=== PATIENT | female | born 2005 ===

== ENCOUNTER 2025-09-06 09:19 | Emergency (ER) | payer OTHER, SELFPAY ==
--- NOTE | ~2025-09-06 | CT_ITS ---
CLINICAL HISTORY: abd pain CT abdomen and pelvis with contrast Comparison: None provided Findings: No consolidation or effusion. The liver, gallbladder, spleen, adrenal glands, pancreas, kidneys, ureters and bladder are unremarkable. Normal appendix. No bowel obstruction. Gas and fluid seen throughout nondistended small and large bowel. No pneumatosis or free air. The uterus appears within normal limits. Abnormal somewhat tubular appearance of the adnexa bilaterally, [id number]. No acute osseous finding. Impression: Hydrosalpinx versus pyosalpinx suggested. Alternatively these may reflect elongated adnexal cysts. Pelvic ultrasound recommended. Otherwise no acute process. This document has been electronically signed by: Andrey Soares MD on 09/06/2025 12:00:32
--- NOTE | ~2025-09-06 | US_ITS ---
CLINICAL HISTORY: abd pain, further evaluation of ovaries US pelvis transabdominal and transvaginal with Doppler Comparison: None provided Findings: Transabdominal scanning performed for overall anatomy. Transvaginal scanning performed for additional detail. Anteverted uterus is 9.3 cm length. Normal myometrium. No endometrial lesion, 8 mm thickness. Right ovary 2.9 x 2.1 x 1.9 cm. Left ovary 6.3 x 4.5 x 5.0 cm. Left ovarian cyst measuring 5.7 x 4.1 x 3.7 cm. Normal color Doppler with arterial/venous spectral tracing of both ovaries. No free fluid. IMPRESSION: 1. No acute process. 2. Left ovarian cyst. Follow-up ultrasound in 6 weeks is recommended to ensure resolution and exclude underlying neoplasm. This document has been electronically signed by: Heriberto Aguirre MD on 09/06/2025 14:07:41
[2025-09-06 09:23] VITALS: BP 125/81; PULSE 80; RESP 15; TEMP 36.6; O2SAT 99; BMI 20.7
--- NOTE | 2025-09-06 09:44 | ED_ITS ---
HPI - General Adult General Chief complaint: Abdominal Pain Stated complaint: abd discomfort Time Seen by Provider: 09/06/25 09:44 Source: patient Mode of arrival: ambulatory Limitations: no limitations History of Present Illness ED Provider: Nichelle Meraz PA-C HPI narrative: Patient is a 20 year old assigned female at with a history of recent BV + chlamydia for which she has been taking her medications presenting to the emergency department today with diffuse abdominal pain, nausea, and vomiting. Patient states that over the last 2 days she has had abdominal pain, nausea, and vomiting. Patient states that she is on her period right now as well. Patient denies any other complaints at this time. Related Data Allergies Allergy/AdvReac Type Severity Reaction Status Date / Time No Known Allergies Allergy Verified 09/06/25 09:23 Review of Systems 2 Constitutional: Constitutional: Reports as per HPI Eyes: Eyes: Reports as per HPI ENT: Reports as per HPI Cardiovascular: Cardiovascular: Reports as per HPI Respiratory: Respiratory: Reports as per HPI Gastrointestinal: Gastrointestinal: Reports as per HPI Genitourinary: Genitourinary: Reports as per HPI Musculoskeletal: Musculoskeletal: Reports as per HPI Integumentary/Breasts: Skin/Breast: Reports as per HPI Neurologic: Reports as per HPI Psychiatric: Psychiatric: Reports as per HPI Endocrine: Endocrine: Reports as per HPI Hematologic/Lymphatic: Hematologic/Lymphatic: Reports as per HPI Allergic/Immunologic: Allergic/Immunologic: Reports as per HPI PMF Past Medical History Attestation statement: The following information was validated with the patient. Source: old records reviewed and nursing notes reviewed Social History Social History Smoked in Last 30 Days: No Use of substances other than those prescribed or required for medical reasons: No Advance Directives: No Advance Directives Information Provided: No Do you have a plan to hurt others: No Plan Physical Exam ED Vital Signs: Vital Signs - 24 hr 09/06/25 09:23 09/06/25 13:48 Temperature 97.8 F 98.8 F Pulse Rate 80 62 Respiratory Rate 15 18 Blood Pressure 125/81 102/59 L Pulse Oximetry 99 100 Oxygen Delivery Method Room Air Room Air BMI result Body Mass Index 20.7 Const General: cooperative, no acute distress, alert and awake Nutritional Appearance: well nourished Orientation/consciousness: patient oriented x3 HENMT Head: Yes normal to inspection and Yes atraumatic Ears: hearing grossly normal bilaterally and external ears normal General nose exam: Normal external nose present, no nasal discharge noted and no epistaxis Face and sinus: Yes normal facial exam, No abrasion and No laceration Mouth: Normal oral and palatal mucosa present, no drooling and no muffled voice Eyes General: appearance normal, both eyes and all related structures Periorbital: periorbital findings normal Eyelids: Yes eyelids normal Conjunctivae: conjunctivae normal Pupils: Equal, round and reactive pupils present EOM: EOMs intact bilaterally Neck Neck: Yes normal visual inspection and Yes full ROM Resp Effort & Inspection: normal respiratory effort and able to speak in complete sentences GI Palpation (GI): Soft to palpation, not firm, Tenderness to palpation present (GI), no guarding and not rigid Neuro General: patient oriented x3, moves all extremities and CN's II-XI intact bilaterally Cranial nerves: Yes Equal, round and reactive pupils present Cognition (Neuro): normal cognition Extrem General: Yes normal to inspection, Yes full ROM and Yes capillary refill normal Psych Appearance: grossly normal Mental Status: mental status grossly normal Affect: normal affect Attitude: cooperative Thought process: Normal thought process present Thought content: Normal thought content present Insight: Good insight present (Psych) Medications Administered Discontinued Medications Generic Name Dose Route Start Last Admin Trade Name Wanda PRN Reason Stop Dose Admin Ceftriaxone Sodium 1 gm 09/06/25 13:17 09/06/25 13:43 Ceftriaxone Sodium 1 Gm Vial IVPUSH 09/06/25 13:18 1 gm ONCE ONE Administration Sodium Chloride 1,000 mls @ 999 mls/hr 09/06/25 09:45 09/06/25 12:01 Ns IV 09/06/25 10:45 Infused .Q1H1M SHEELA Infusion Iohexol 100 ml 09/06/25 11:18 09/06/25 11:18 Iohexol 350 Mg/Ml 100 Ml Infus..Btl IV 09/06/25 11:19 85 ml ONCE ONE Administration Morphine Sulfate 4 mg 09/06/25 09:44 09/06/25 10:44 Morphine Sulfate 4 Mg/Ml Cartridge IVPUSH 09/06/25 09:45 4 mg ONCE ONE Administration Protocol Morphine Sulfate 4 mg 09/06/25 13:52 09/06/25 14:40 Morphine Sulfate 4 Mg/Ml Cartridge IVPUSH 09/06/25 13:53 4 mg ONCE ONE Administration Protocol Ondansetron HCl 4 mg 09/06/25 09:44 09/06/25 10:44 Ondansetron Hcl 4 Mg/2 Ml Vial IVPUSH 09/06/25 09:45 4 mg ONCE ONE Administration Medical Decision Making Medical Decision Making [facility] Narrative: Patient is a 20 year old assigned female at with a history of recent BV + chlamydia for which she has been taking her medications presenting to the emergency department today with diffuse abdominal pain, nausea, and vomiting. Patient's physical exam was as noted in the physical exam portion of this note. Patient's blood work was unremarkable. Patient's urine showed moderate blood which is consistent with the patient currently being on her menstrual cycle. Patient's CT abd/pelvis showed hyddrosalpinx vs. pyosalpix vs. elongated adenexal cysts for which the radgiologist recommended an US. Patient's transvaginal / pelvis US showed a left ovary measuring 6.3 x 4.5 x 5.0 cm with a left ovarian cyst measuring 5.7 x 4.1 x 3.7 cm with normal doppler flow. Patient's clinical presentation and work up are concerning for PID as well as left ovarian torsion + de-torsion given her level of pain, nausea, vomiting, and enlarged ovary + cyst. [facility] does not have OBGYN call coverage today so I called and spoke to Dr. Deshpande, OBGYN, from [facility] who recommended transfer of the patient to their facility for further evaluation. I explained my physical exam findings as well as all test results to the patient. I answered all questions asked by the patient. Patient received IV Morphine, Ceftriaxone, and Flagyl. Patient verbalized agreement and understanding with this treatment plan and transfer to [facility]. Differential Diagnosis Differential Diagnoses: The differential diagnosis associated with the presentation includes Ovarian cyst Abdominal pain Ovarian torsion de-torsion PID Admission/Observation Consideration of admission/observation: Escalation of care including admission/observation considered Patient transferred to [facility] for further OBGYN evaluation. Consult Healthcare Provider Management of the patient was discussed with: [employer] (Spoke to Dr. Deshpande, the OBGYN at [facility], as noted in the MDM Rationale portion of this note. ) Lab Data [facility] Lab Attestation statement: I reviewed the patient's lab results. My interpretation of these results are in the MDM Rationale portion of this note. 09/06/25 10:03 09/06/25 10:03 Labs: Lab Results 09/06/25 09/06/25 Range/Units 10:03 13:42 WBC 6.1 (4.8-10.8) X10*3/uL RBC 5.27 (4.20-5.50) X10*6/uL Hgb 15.0 (12.0-16.0) g/dl Hct 45.0 (37.0-47.0) % MCV 85.4 (80.0-98.0) fL MCH 28.5 (27.0-33.0) pg MCHC 33.3 (31.0-35.0) g/dl RDW 13.3 (11.0-16.0) % Plt Count 250 (160-400) X10*3/uL MPV 9.5 (9.4-12.3) fL Immature Gran % (Auto) 0.7 H (0.0-0.4) % Neut % (Auto) 69.1 (45-73) % Lymph % (Auto) 21.1 (20-40) % [place] % (Auto) 8.1 (2-11) % Eos % (Auto) 0.3 (0-4) % Baso % (Auto) 0.7 (0-2) % Lymph # (Auto) 1.3 (1.2-4.9) X10*3/uL [place] # (Auto) 0.5 (0.1-1.2) X10*3/uL Eos # (Auto) 0.0 (0.0-0.4) X10*3/uL Baso # (Auto) 0.0 (0.0-0.2) X10*3/uL Abs Immat Gran (auto) 0.04 H (0.00-0.03) X10*3/uL Absolute Neuts (auto) 4.2 (2.0-8.3) x10*3/uL Absolute Nucleated RBC 0.000 (0.0-0.012) X10*3/uL Nucleated RBC % (auto) 0.0 (0.0-0.2) /100WBC Sodium 138 (135-145) mmol/L Potassium 3.3 (3.3-5.1) mmol/L Chloride 106 (96-108) mmol/L Carbon Dioxide 26 (22-29) mmol/L Anion Gap 9 L (12-20) BUN 10 (9-16) mg/dL Creatinine 0.65 (0.5-1.4) mg/dL Estim Creat Clear Calc 119.2 Estimated GFR > 60 Random Glucose 97 (60-115) mg/dL Lactic Acid 1.1 (0.5-2.0) mmol/L Calcium 9.5 (8.4-10.2) mg/dL Magnesium 1.8 (1.6-2.6) mg/dL Total Bilirubin 0.9 (0.0-1.0) mg/dL Direct Bilirubin 0.3 (0.0-0.5) mg/dL AST 15 (5-31) U/L ALT 13 (0-31) U/L Alkaline Phosphatase 46 (39-117) U/L Total Protein 7.3 (6.5-8.0) g/dL Albumin 4.7 (3.5-5.0) g/dL Lipase 19 (8-78) U/L Beta HCG, Quant < 2 mIU/mL Urine Color Yellow Urine Appearance Clear Urine pH 5.5 (5.0-9.0) Ur Specific [place] 1.010 (1.005-1.025) Urine Protein Negative (Neg-Trace) mg/dL Urine Glucose (UA) Negative (Negative) mg/dL Urine Ketones 15 (Negative) mg/dL Urine Blood Moderate (2+) H (Negative) Urine Nitrite Negative (Negative) Ur Leukocyte Esterase Trace H (Negative) Urine RBC >20 H (0-2) /HPF Urine WBC 0-5 (0-5) /HPF Ur Squamous Epith Cells 0-2 (0-2) /HPF Urine Bacteria None Seen (None Seen) Hyaline Casts 0-2 (0-2) /LPF Independent Interpretation I performed an independent interpretation of an: Ultrasound and CT Scan Interpretation: My interpretation is in agreement with the radiologist's impression of these imaging studies. L Report Number: [id number] Reason for Exam: abd pain CLINICAL HISTORY: abd pain CT abdomen and pelvis with contrast Comparison: None provided Findings: No consolidation or effusion. The liver, gallbladder, spleen, adrenal glands, pancreas, kidneys, ureters and bladder are unremarkable. Normal appendix. No bowel obstruction. Gas and fluid seen throughout nondistended small and large bowel. No pneumatosis or free air. The uterus appears within normal limits. Abnormal somewhat tubular appearance of the adnexa bilaterally, [id number]. No acute osseous finding. Impression: Hydrosalpinx versus pyosalpinx suggested. Alternatively these may reflect elongated adnexal cysts. Pelvic ultrasound recommended. Otherwise no acute process. This document has been electronically signed by: Andrey Soares MD on 09/06/2025 12:00:32 Dictated By: Andrey Soares MD Signed By: Electronically signed by Andrey Soares MD 09/06/25 1200 Reason for Exam: abd pain, further evaluation of ovaries CLINICAL HISTORY: abd pain, further evaluation of ovaries US pelvis transabdominal and transvaginal with Doppler Comparison: None provided Findings: Transabdominal scanning performed for overall anatomy. Transvaginal scanning performed for additional detail. Anteverted uterus is 9.3 cm length. Normal myometrium. No endometrial lesion, 8 mm thickness. Right ovary 2.9 x 2.1 x 1.9 cm. Left ovary 6.3 x 4.5 x 5.0 cm. Left ovarian cyst measuring 5.7 x 4.1 x 3.7 cm. Normal color Doppler with arterial/venous spectral tracing of both ovaries. No free fluid. IMPRESSION: 1. No acute process. 2. Left ovarian cyst. Follow-up ultrasound in 6 weeks is recommended to ensure resolution and exclude underlying neoplasm. This document has been electronically signed by: Heriberto Aguirre MD on 09/06/2025 14:07:41 Dictated By: Heriberto Aguirre MD Signed By: Electronically signed by Heriberto Aguirre MD 09/06/25 1407 Radiology Impression Discussion of test interpretation with radiology: I have reviewed the radiologist's reading. Critical Care Time Critical Care Time Critical Care Time: Yes Total Critical Care Time: 49 Attestation: I spent 49 minutes of Critical Care Time with this patient. This does not include time spent on separately reported billable procedures. Discharge Plan Discharge Clinical Impression: Ovarian torsion, PID (pelvic inflammatory disease) Ovarian cyst Qualifiers: Laterality: left Qualified Code(s): N83.202 - Unspecified ovarian cyst, left side Patient Disposition: [facility] Transfer Details: Transferred to [facility] accepted by Dr. Deshpande Print Language: Martiniquais
--- OUTSIDE RECORDS SUMMARY | 2025-09-06 10:02 | XMS_ITS | Clinical Summary ---
Author Organization [facility] [email or web address] [facility] ity Address [address] [place] [address] Care Team Providers Care Boatwright Name Role Phone Unavailable Primary Care Provider Unavailabl e Social History Tobacco Use Types Packs/Day Years Used Date Smoking Tobacco: Never Assessed Comments Unknown Sex and Gender Information Value Date Recorded Sex Assigned at Not on file Legal Sex Female 4:37 AM EST Gender Identity Not on file Sexual Orientation Not on file Plan of Treatment Health Maintenance Due Date Last Done Comments Gonorrhea/Chlamydia Screening 2005 Varicella Vaccines (1 of 2 - 13+ 2-dose series) 2018 Meningococcal B Vaccine (1 o f 2 - Standard) 2021 Annual Well Child Visit (3-2 1 years old) 12/26/2023 HIV Screening 12/26/2023 Hepatitis C Screening 12/26/2023 Social Influencers of Health Screening 12/26/2023 Hepatitis B Vaccines (1 of 3 - 19+ 3-dose series) 2024 Depression Screening 11/27/2024 COVID-19 Vaccine (1 - 2023-2 5 season) 2025 Influenza Vaccine (#1) 2025 08/17/2016 DTaP,Tdap,and Td Vaccines (2 - Td or Tdap) 12/26/2026 12/26/2016 RSV Immunization Adult Patients (1 - 1-dose 75+ series) 2080 Meningococcal ACWY Vaccine Aged Out 12/26/2016 N o longer eligible based on patient's age to complete this topic HPV Vaccines Completed 07/13/2017, 12/26/2016 HIB Vaccines Aged Out No longer eligi ble based on patient's age to complete this topic Hepatitis A Vaccines Aged Out No long er eligible based on patient's age to complete this topic IPV Vaccines Aged Out No longer eligi ble based on patient's age to complete this topic MMR Vaccines Aged Out No longer eligi ble based on patient's age to complete this topic Pneumococcal Vaccine: Pediatrics (0 to 5 Years) and At-Risk Patients (6 to 49 Years) Aged Out No longer eligible b ased on patient's age to complete this topic RSV Immunization Patients Under 20 months Aged Out No longer eligible b ased on patient's age to complete this topic
[2025-09-06 10:10] LABS: MANUAL DIFF FLAG NO
[2025-09-06 10:11] LABS: Hematocrit 45.0 % (37.0-47.0); Hemoglobin 15.0 g/dl (12.0-16.0); Imm Gran Abs Auto 0.04 X10*3/uL (0.00-0.03); Imm Gran Pct Auto 0.7 % (0.0-0.4); Lymphocytes Absolute Auto 1.3 X10*3/uL (1.2-4.9); Mean Corpuscular HGB Conc 33.3 g/dl (31.0-35.0); Mean Corpuscular Hemoglobin 28.5 pg (27.0-33.0); Mean Corpuscular Volume 85.4 fL (80.0-98.0); NRBC Abs Auto 0.000 X10*3/uL (0.0-0.012); NRBC Pct Auto 0.0 /100WBC (0.0-0.2); Platelet Count 250 X10*3/uL (160-400); Red Blood Count 5.27 X10*6/uL (4.20-5.50); White Blood Count 6.1 X10*3/uL (4.8-10.8)
[2025-09-06 10:12] LABS: Appearance Urine Clear; Glucose Urine UA Negative (Negative); PH 5.5 (5.0-9.0); Specific Gravity - Urine 1.010 (1.005-1.025); UMIC TRIGGER UACC YES
[2025-09-06 10:39] LABS: Alanine Aminotransferase 13 U/L (0-31); Albumin Level 4.7 g/dL (3.5-5.0); Alkaline Phosphatase 46 U/L (39-117); Anion Gap 9 (12-20); Aspartate Amino Transferase 15 U/L (5-31); Blood Urea Nitrogen 10 mg/dL (9-16); Calcium 9.5 mg/dL (8.4-10.2); Carbon Dioxide 26 mmol/L (22-29); Chloride 106 mmol/L (96-108); Creatinine Clr Calc Pharmacy 119.2; Estimated Glomerular Filt Rate > 60; Lipase 19 U/L (8-78); Magnesium 1.8 mg/dL (1.6-2.6); Potassium 3.3 mmol/L (3.3-5.1); Sodium 138 mmol/L (135-145); Total Protein 7.3 g/dL (6.5-8.0)
[2025-09-06] MEDS: iohexoL 350 MG/ML 100 ML INFUS..BTL IV (11:18)
[2025-09-06 13:48] VITALS: BP 102/59; PULSE 62; RESP 18; TEMP 37.1; O2SAT 100
[2025-09-06] MEDS: metroNIDAZOLE/NS 500 MG/100 ML PIGGYBACK 100 MG IV (15:07)
--- NOTE | 2025-09-06 15:23 | PC.NURSE ---
report called to july nurse at [facility]
[2025-09-06 15:24] VITALS: BP 102/59; PULSE 62; RESP 18; TEMP 37.1; O2SAT 100
== END 2025-09-06 15:27 | disposition short-term general hospital (02) ==
PROVIDERS: Physician Assistant Medical; Emergency Provider Emergency Medicine
DX: N83.202 Unspecified ovarian cyst, left side (principal); N83.512 Torsion of left ovary and ovarian pedicle; N73.9 Female pelvic inflammatory disease, unspecified; R10.22 Pelvic and perineal pain left side; R11.2 Nausea with vomiting, unspecified; Z79.899 Other long term (current) drug therapy
CPT/HCPCS: 36415; 74177; 76830; 76856; 80053; 81001; 82248; 83605; 83690; 83735; 84702; 85025; 87040; 96361; 96374; 96375; 96376; 99285; J0696; J1836; J2270; J2405; Q9967

== ENCOUNTER → 2025-09-06 09:44 | Outpatient (BNV) | payer OTHER, SELFPAY | PROVIDERS: Visit Provider Radiology Vascular & Interventional Radiology | DX: R10.84 Generalized abdominal pain (principal); N83.292 Other ovarian cyst, left side | CPT/HCPCS: 74177; 76830; 76856 ==